=== PATIENT | male | born 1950 | race African-American/Black ===

== ENCOUNTER 2020-12-05 18:24 | Inpatient (IN) ==
[2020-12-05] MEDS ORDERED: levETIRAcetam 500 MG/5 ML VIAL IV ONE (19:33)
[2020-12-05 19:39] LABS: Basophils % 0.2 % (0.0-0.8); Eosinophils % 0.2 % (0.00-10.9); Hematocrit 32.9 VOL% (42.0-52.0); Hemoglobin 10.4 GM/DL (14.0-18.0); Immature Granulocytes % 1.4 %; Immature Granulocytes Absolute 0.14 #; Lymphocytes # 0.9 10*3/uL (1.4-4.0); Lymphocytes % 8.8 % (21.2-54.2); Mean Corpuscular HGB Conc 31.6 GM/DL (32-36); Mean Corpuscular Volume 94.3 FL (87-102); Mean Platelet Volume 11.1 FL (9.6-12.0); Neutrophils % 78.4 % (38.7-73.9); Platelet Count 209 T/CUMM (130-400); Red Blood Count 3.49 MC/CUMM (3.8-5.5); Red Cell Distribution Width 14.5 % (9.3-17.3)
[2020-12-05] MEDS ORDERED: ALBUTEROL 2.5 MG/3 ML NEB RESP TX PRN (19:49)
[2020-12-05] MEDS ORDERED: ACETAMINOPHEN 325 MG TABLET PO PRN (19:49)
[2020-12-05] MEDS ORDERED: NICOTINE 21 MG/24 HR PATCH TRANSDERM PRN (19:49)
[2020-12-05] MEDS ORDERED: diphenhydrAMINE CAP 25 MG CAPSULE PO PRN (19:49)
[2020-12-05] MEDS ORDERED: ONDANSETRON 4 MG/2 ML VIAL IV PRN (19:49)
[2020-12-05 19:56] LABS: Alanine Aminotransferase 63 U/L (16-61); Albumin 2.6 G/DL (3.4-5.0); Alkaline Phosphatase 128 U/L (45-117); Aspartate Amino Transferase 47 U/L (0-37); Bilirubin,Total < 0.39 MG/DL (0.2-1.0); Blood Urea Nitrogen 42 MG/DL (7-18); Calcium 8.9 MG/DL (8.5-10.1); Carbon Dioxide 35 MMOL/L (21-32); Estimated Glom Filtration Rate 81 ML/MIN; Glucose 148 MG/DL (74-106); Osmolality,Calculated 307.3 MOS/KG (273-304); Potassium 3.9 MMOL/L (3.5-5.1); Sodium 148 MMOL/L (136-145); Total Protein 6.7 G/DL (6.4-8.2)
[2020-12-05] MEDS ORDERED: LORazepam 2 MG/1 ML VIAL IV PRN (19:57)
[2020-12-05] MEDS ORDERED: SODIUM CHLORIDE 0.9% 1,000 ML IV SCH (20:00)
[2020-12-05 20:19] LABS: ABG Base Excess 8.5 MMOL/L (-2.5-2.5); ABG Oxygen Saturation 84.4 % (95-100); ABG PCO2 48.6 MM HG (35-48); ABG PH 7.449 (7.35-7.45); ABG PO2 50.3 MM HG (80-95); ABG TCO2 30.8 MMOL/L (23-27)
[2020-12-05] MEDS ORDERED: DEXTROSE 50% 25 GM/50 ML VIAL IV PRN (20:29)
[2020-12-05] MEDS ORDERED: GLUCAGON 1 MG VIAL IM PRN (20:29)
[2020-12-05] MEDS: LACTATED RINGERS 1,000 ML IV SCH (21:27)
[2020-12-06] MEDS: hydrALAZINE 20 MG/1 ML VIAL IV PRN ×2 (00:20→18:09)
[2020-12-06] MEDS: INSULIN LISPRO 100 UNIT/ML SUBCUT SCH ×4 (00:25→18:32)
[2020-12-06] MEDS ORDERED: methylPREDNISolone SOD SUC 125 MG/2 ML VIAL IV ONE (02:00)
[2020-12-06 04:28] LABS: Bacteria,Urine Moderate /HPF (Few); Bilirubin,Urine Negative (Negative); Blood, Urine Negative (Negative); Glucose,Urine (UA) Negative (Negative); Hyaline Casts,Urine 3 /LPF (0-3); Ketones,Urine Negative (Negative); Mucus,Urine Occasional /LPF (Occasional); Nitrite,Urine Negative (Negative); Protein,Urine 100 MG/DL; RBC,Urine 2 /HPF (0-4); Urine Appearance CLEAR (Clear); Urine Color Yellow (Yellow); Urine Specific Gravity 1.018 (1.001-1.035); Urine Urobilinogen < 2.0 EU/DL (0.2-1.0)
[2020-12-06] MEDS: LACTATED RINGERS 1,000 ML IV SCH ×3 (05:30→20:37)
[2020-12-06 08:38] LABS: Basophils % 0.3 % (0.0-0.8); Eosinophils # 0.1 10*3/uL (0.0-0.87); Eosinophils % 0.6 % (0.00-10.9); Hemoglobin 9.5 GM/DL (14.0-18.0); Immature Granulocytes Absolute 0.08 #; Lymphocytes # 0.8 10*3/uL (1.4-4.0); Lymphocytes % 9.8 % (21.2-54.2); Mean Corpuscular HGB Conc 32.8 GM/DL (32-36); Mean Corpuscular Volume 92.9 FL (87-102); Mean Platelet Volume 11.4 FL (9.6-12.0); Monocytes % 15.4 % (1.7-12.7); Neutrophils % 72.9 % (38.7-73.9); Platelet Count 157 T/CUMM (130-400); Red Blood Count 3.12 MC/CUMM (3.8-5.5); Red Cell Distribution Width 14.5 % (9.3-17.3); White Blood Count 7.7 T/CUMM (4-12)
[2020-12-06 08:58] LABS: Albumin 2.4 G/DL (3.4-5.0); Bilirubin,Total 0.4 MG/DL (0.2-1.0); Calcium 8.7 MG/DL (8.5-10.1); Potassium 3.6 MMOL/L (3.5-5.1); Total Protein 5.9 G/DL (6.4-8.2)
[2020-12-06] MEDS: cefTRIAXone 1,000 MG in SODIUM CHLORIDE 0.9% 100 ML IV SCH (18:09)
[2020-12-06] MEDS: VALPROIC ACID 250 MG/5 ML UDCUP PEG SCH (21:25)
[2020-12-06] MEDS: OXcarbazepine 300 MG TABLET PEG SCH (21:25)
[2020-12-07] MEDS: hydrALAZINE 20 MG/1 ML VIAL IV PRN (00:27)
[2020-12-07] MEDS: INSULIN LISPRO 100 UNIT/ML SUBCUT SCH ×4 (00:27→18:34)
[2020-12-07] MEDS: LACTATED RINGERS 1,000 ML IV SCH ×2 (04:11→12:15)
[2020-12-07 04:19] LABS: Basophils % 0.4 % (0.0-0.8); Eosinophils % 0.5 % (0.00-10.9); Hematocrit 33.7 VOL% (42.0-52.0); Hemoglobin 10.8 GM/DL (14.0-18.0); Immature Granulocytes % 1.1 %; Immature Granulocytes Absolute 0.09 #; Lymphocytes # 0.9 10*3/uL (1.4-4.0); Lymphocytes % 11.8 % (21.2-54.2); Mean Corpuscular Volume 93.9 FL (87-102); Monocytes % 13.3 % (1.7-12.7); Neutrophils % 72.9 % (38.7-73.9); Platelet Count 200 T/CUMM (130-400); Red Blood Count 3.59 MC/CUMM (3.8-5.5); Red Cell Distribution Width 14.2 % (9.3-17.3); White Blood Count 7.9 T/CUMM (4-12)
[2020-12-07 04:34] LABS: Alanine Aminotransferase 41 U/L (16-61); Albumin 2.4 G/DL (3.4-5.0); Alkaline Phosphatase 118 U/L (45-117); Aspartate Amino Transferase 27 U/L (0-37); Bilirubin,Total < 0.39 MG/DL (0.2-1.0); Blood Urea Nitrogen 26 MG/DL (7-18); Calcium 9.1 MG/DL (8.5-10.1); Carbon Dioxide 32 MMOL/L (21-32); Estimated Glom Filtration Rate 111 ML/MIN; Glucose 57 MG/DL (74-106); Osmolality,Calculated 296.3 MOS/KG (273-304); Potassium 3.3 MMOL/L (3.5-5.1); Sodium 148 MMOL/L (136-145); Total Protein 6.6 G/DL (6.4-8.2)
[2020-12-07] MEDS: VALPROIC ACID 250 MG/5 ML UDCUP PEG SCH ×2 (09:25→21:22)
[2020-12-07] MEDS: OXcarbazepine 300 MG TABLET PEG SCH ×2 (09:26→21:22)
[2020-12-07] MEDS: cefTRIAXone 1,000 MG in SODIUM CHLORIDE 0.9% 100 ML IV SCH (19:06)
[2020-12-08] MEDS: INSULIN LISPRO 100 UNIT/ML SUBCUT SCH ×3 (00:32→13:13)
[2020-12-08 05:09] LABS: Albumin 2.2 G/DL (3.4-5.0); Bilirubin,Total 0.7 MG/DL (0.2-1.0); Calcium 8.5 MG/DL (8.5-10.1); Osmolality,Calculated 294.6 MOS/KG (273-304); Potassium 3.6 MMOL/L (3.5-5.1); Total Protein 6.1 G/DL (6.4-8.2)
[2020-12-08 05:26] LABS: Calcium 8.6 MG/DL (8.5-10.1); Osmolality,Calculated 293.7 MOS/KG (273-304); Potassium 3.6 MMOL/L (3.5-5.1)
[2020-12-08 06:13] LABS: Basophils % 0.5 % (0.0-0.8); Eosinophils # 0.1 10*3/uL (0.0-0.87); Eosinophils % 0.8 % (0.00-10.9); Hematocrit 29.6 VOL% (42.0-52.0); Hemoglobin 9.7 GM/DL (14.0-18.0); Immature Granulocytes % 0.8 %; Immature Granulocytes Absolute 0.05 #; Lymphocytes # 0.8 10*3/uL (1.4-4.0); Lymphocytes % 12.7 % (21.2-54.2); Mean Corpuscular HGB Conc 32.8 GM/DL (32-36); Mean Corpuscular Volume 92.2 FL (87-102); Mean Platelet Volume 10.8 FL (9.6-12.0); Monocytes % 11.3 % (1.7-12.7); Neutrophils % 73.9 % (38.7-73.9); Platelet Count 198 T/CUMM (130-400); Red Blood Count 3.21 MC/CUMM (3.8-5.5); Red Cell Distribution Width 13.9 % (9.3-17.3); White Blood Count 6.5 T/CUMM (4-12)
[2020-12-08] MEDS: OXcarbazepine 300 MG TABLET PEG SCH (08:58)
[2020-12-08] MEDS: VALPROIC ACID 250 MG/5 ML UDCUP PEG SCH (08:59)
[2020-12-08 12:14] VITALS: BP 175/82
[2020-12-08] MEDS ORDERED: CEFUROXIME 500 MG TABLET PO SCH (21:00)
== END 2020-12-08 15:35 | DRG 100 ==
LOC: N.ED 18:24 → SUATTDRO 19:49 → N.EDINP 19:49 → N.ICU 20:45 → N.4E 12-07 17:01
PROVIDERS: ADMIT Internal Medicine; ATTEND Hospitalist